=== PATIENT | female | born 1975 | race Caucasian/White ===

== ENCOUNTER → 2018-11-13 | Outpatient (CLI) | payer BC ==
[~2018-11-13] MED LIST: BACTRIM DS TAB1 EACH PO; CLEOCIN HCL300 MG PO; DIFLUCAN150 M1 PO; IBUPROFEN 800800 M1 PO; KEFLEX500 MG PO; METROGEL-VAGINA70 GM VG; NORCO 5-325 TA1 EACH PO; PHENTERMINE H37.5 MG PO
== END ==
LOC: M.RAD 10:00
DX: R13.10 Dysphagia, unspecified (principal); R10.9 Unspecified abdominal pain; R11.10 Vomiting, unspecified